=== PATIENT | male | born 1970 | race Caucasian/White ===

== ENCOUNTER 2019-01-27 06:51 | Emergency (ER) | payer BC ==
[~2019-01-27] VITALS: Ht 180.3 cm; Wt 109.0 kg
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
[2019-01-27] MEDS ORDERED: HYDROmorphone 1 MG/ML, 1ML INJ IM ONE (07:30)
[2019-01-27] MEDS ORDERED: HYDROmorphone 2 MG/ML, 1ML ONE ×2 (07:38→09:16)
--- NOTE | 2019-01-27 07:45 | NUR ---
PT MEDICATED FOR PAIN PER EMAR. PT TO XRAY.
[2019-01-27] MEDS ORDERED: hypertension med (07:57)
[2019-01-27] MEDS ORDERED: SODIUM CHLORIDE FLUSH 10ML SYR IVF ONE (08:30)
[2019-01-27] MEDS ORDERED: HYDROmorphone 1 MG/ML, 1ML INJ IVPush PRN (08:30)
--- NOTE | 2019-01-27 08:57 | NUR ---
pt reports his pain is still 10/10
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
--- NOTE | 2019-01-27 09:40 | NUR ---
REPORT GIVEN TO GERI PEDROZA AT [facility]
[2019-01-27 09:52] VITALS: BP 132/74
== END 2019-01-27 11:23 | disposition short-term general hospital (02) ==
LOC: ED 08:15
DX: S22.41XA Multiple fractures of ribs, right side, initial encounter for closed fracture (principal); S27.0XXA Traumatic pneumothorax, initial encounter; K21.9 Gastro-esophageal reflux disease without esophagitis; I10 Essential (primary) hypertension; E11.9 Type 2 diabetes mellitus without complications; W19.XXXA Unspecified fall, initial encounter; Y93.89 Activity, other specified; Y92.89 Other specified places as the place of occurrence of the external cause; Y99.8 Other external cause status
CPT/HCPCS: 71101; 71250; 73502; 96372; 96374; 99285; J1170

== ENCOUNTER 2019-12-24 21:06 | Emergency (ER) | payer BC ==
[~2019-12-24] VITALS: Ht 182.9 cm; Wt 109.0 kg
[~2019-12-24 21:06] MED LIST: hypertension med
[2019-12-24] MEDS ORDERED: OXYcodone/APAP 5/325MG TABLET ONE (21:41)
[2019-12-24] MEDS ORDERED: METHOCARBAMOL 750 MG TABLET ONE (21:41)
[2019-12-24] MEDS ORDERED: OXYcodone/APAP 5/325MG TABLET PO ONE (22:00)
[2019-12-24] MEDS ORDERED: METHOCARBAMOL 750 MG TABLET PO ONE (22:00)
[2019-12-24 22:28] VITALS: BP 97/46
== END 2019-12-24 23:33 | disposition home or self-care (01) ==
LOC: ED 23:24
DX: S32.019A Unspecified fracture of first lumbar vertebra, initial encounter for closed fracture (principal); I10 Essential (primary) hypertension; E11.9 Type 2 diabetes mellitus without complications; K21.9 Gastro-esophageal reflux disease without esophagitis; V86.56XA Driver of dirt bike or motor/cross bike injured in nontraffic accident, initial encounter; Y93.89 Activity, other specified; Y92.89 Other specified places as the place of occurrence of the external cause; Y99.8 Other external cause status
CPT/HCPCS: 72131; 99284

== ENCOUNTER 2020-06-14 19:14 | Emergency (ER) | payer BC, OTHER ==
[~2020-06-14] VITALS: Ht 182.9 cm; Wt 115.0 kg
[2020-06-14 19:26] VITALS: BP 102/68
--- NOTE | 2020-06-14 20:50 | NUR ---
PER THE DOOR SCREENER, PT WAS SEEN LEAVING STATING "CAN'T I EVEN GET A PAIN PILL IN THIS PLACE? I'M LEAVING".
--- NOTE | 2020-06-14 21:28 | NUR ---
CALLED FOR PT TO VERIFY PT STILL NOT IN LOBBY. PT NOT IN LOBBY OR RESTROOMS.
== END 2020-06-14 21:32 | disposition left against medical advice (07) ==
LOC: ED 21:26
DX: R07.81 Pleurodynia (principal)
CPT/HCPCS: 99283

== ENCOUNTER 2020-10-27 17:29 | Emergency (ER) | payer SELFPAY ==
[~2020-10-27] VITALS: Ht 182.9 cm; Wt 112.7 kg
[2020-10-27 17:43] VITALS: BP 125/80
[2020-10-27] MEDS ORDERED: LIDOCAINE-MPF 1%, 5ML ONE (18:03)
[2020-10-27] MEDS ORDERED: LIDOCAINE-MPF 2% ,5ML ONE (18:06)
--- NOTE | 2020-10-27 18:15 | NUR ---
IV PLACED BY ZACARIAS NEVAREZ. PRESSURE DRESSING TO RLE. PULSE PALPABLE, CMS INTACT. CALL LIGHT WITHIN REACH.
[2020-10-27] MEDS ORDERED: DIPH,PERTUSS(ACELL),TET VAC/PF 0.5 ML IM-VACC ONE ×2 (19:00→19:06)
[2020-10-27] MEDS ORDERED: LIDOCAINE-MPF 1%, 5ML INFIL ONE (19:00)
[2020-10-27] MEDS ORDERED: HYDROcodone/APAP 5/325 TABLET PO STA (19:19)
[2020-10-27] MEDS ORDERED: HYDROcodone/APAP 5/325 TABLET ONE (19:32)
--- NOTE | 2020-10-27 19:39 | NUR ---
Assist RN: Medicated patient per mar. No needs at this time.
--- NOTE | 2020-10-27 20:40 | NUR ---
MED REQUEST TO PHARMACY FOR LIDO WITH EPI
[2020-10-27] MEDS ORDERED: NEOSPORIN OINT. PKT 1 PACKET ONE (21:05)
--- NOTE | 2020-10-27 21:08 | NUR ---
REPORT FROM HAILEY AT THIS TIME TRANSFER OF CARE. TECH AT BEDSIDE FOR DRESSING APPLICATION.
--- NOTE | 2020-10-27 21:11 | NUR ---
REPORT TO SHARMIN NEVAREZ, TRANSFER OF CARE AT THIS TIME.
--- NOTE | 2020-10-27 21:30 | NUR ---
Patient/Caregiver given discharge instructions and they have confirmed that they understand the instructions. Patient ambulatory with steady gait.
== END 2020-10-27 21:31 | disposition home or self-care (01) ==
LOC: ED 18:33
DX: S81.811A Laceration without foreign body, right lower leg, initial encounter (principal); S60.032A Contusion of left middle finger without damage to nail, initial encounter; W18.30XA Fall on same level, unspecified, initial encounter; Y93.89 Activity, other specified; Y92.828 Other wilderness area as the place of occurrence of the external cause; Y99.8 Other external cause status
CPT/HCPCS: 12034; 12035; 90471; 90715; 99285